=== PATIENT | female | born 1995 | race Caucasian/White ===

== ENCOUNTER 2021-01-27 09:30 | Inpatient (IN) | payer OTHER ==
[2021-01-27] MEDS ORDERED: Ibuprofen 800 MG TAB PO PRN (09:49)
[2021-01-27] MEDS ORDERED: Methylergonovine 0.2 MG/ML VIAL IM PRN (09:49)
[2021-01-27] MEDS ORDERED: Ondansetron PF 4 MG/2 ML Vial IVP PRN ×3 (09:49→21:09)
[2021-01-27] MEDS ORDERED: HYDROcodone/Acetaminophen 5/325 mg Tablet PO PRN (09:49)
[2021-01-27] MEDS ORDERED: Promethazine HCl 25 MG/ML VIAL IM PRN ×3 (09:49→21:09)
[2021-01-27] MEDS ORDERED: hydrALAZINE 20 MG/ML VIAL SLOW IVP PRN ×2 (09:49→21:09)
[2021-01-27] MEDS ORDERED: Butorphanol Tartrate 1 MG/ML VIAL SLOW IVP PRN (09:49)
[2021-01-27] MEDS ORDERED: Diphenoxylate HCl/Atropine Tablet PO PRN (09:49)
[2021-01-27] MEDS ORDERED: Acetaminophen 500 MG TAB PO PRN (09:49)
[2021-01-27] MEDS ORDERED: Carboprost 250 MCG/ML AMP IM PRN (09:49)
[2021-01-27] MEDS ORDERED: Misoprostol 200 MCG TAB PR PRN (09:49)
[2021-01-27] MEDS ORDERED: Lidocaine 1% (PF) 30 ML VIAL SC PRN (09:49)
[2021-01-27] MEDS ORDERED: NS w/ Oxytocin 30 units 500 ML IV SCH ×2 (10:00→21:09)
[2021-01-27] MEDS ORDERED: NS w/ Oxytocin 30 units 500 ML IVPB SCH (10:00)
[2021-01-27] MEDS: Lactated Ringer's 1,000 ML IV SCH ×2 (10:08→13:57)
[2021-01-27 10:12] VITALS: BMI 33.1
[2021-01-27] MEDS: NS w/ Oxytocin 30 units 500 ML IV SCH ×2 (10:53→20:27)
[2021-01-27 11:33] LABS: Hemoglobin 12.2 g/dL (12.0-15.5); Mean Corpuscular HGB CONC 34.5 g/dL (32.0-36.0); Mean Corpuscular Hemoglobin 29.9 pg (27.0-33.0); Mean Corpuscular Volume 86.8 fl (81.6-98.3); Platelet Count 148 10x3/uL (150-450); RBC Distribution Width 13.9 % (11.5-14.5); Red Blood Cell (RBC) Count 4.08 10x6/uL (3.90-5.03); White Blood Cell (WBC) Count 11.1 10x3/uL (3.5-10.5)
[2021-01-27 12:05] LABS: Hep B Surf Ag Non-Reactive S/CO (NonReactive); Syphilis Antibody Nonreactive (Nonreactive); Syphilis Antibody Index 0.08 S/CO (<1.00 Non-Reactive)
[2021-01-27] MEDS ORDERED: Fentanyl 2 mcg/Bup 0.1% Cadd 100 ML ONE (13:26)
[2021-01-27] MEDS ORDERED: Acetaminophen 325 MG TAB PO PRN (13:47)
[2021-01-27] MEDS ORDERED: diphenhydrAMINE 50 MG/ML VIAL IVP PRN (13:47)
[2021-01-27] MEDS ORDERED: Naloxone HCl 0.4 mg/ml Vial IVP PRN ×2 (13:47)
[2021-01-27] MEDS ORDERED: Hydrocerin (Eucerin) Cream 120 gm Jar TOP PRN (13:47)
[2021-01-27] MEDS ORDERED: Lactated Ringer's 500 ML IV PRN (13:47)
[2021-01-27] MEDS ORDERED: ePHEDrine Sulfate 50 MG/10 ML VIAL SLOW IVP PRN (13:47)
[2021-01-27] MEDS ORDERED: Fentanyl 2 mcg/Bupivacaine 0.1% Cassette 100 ML EPIDURAL SCH (14:00)
[2021-01-27] MEDS ORDERED: Communication Order-Pharmacy FS SCH (14:00)
[2021-01-27] MEDS ORDERED: Bisacodyl 10 MG SUPP PR PRN (21:09)
[2021-01-27] MEDS ORDERED: Milk Of Magnesia 30 ML UDCUP PO PRN (21:09)
[2021-01-27] MEDS ORDERED: Boostrix 0.5 ML (Tdap) VIAL IM ONE (21:09)
[2021-01-27] MEDS ORDERED: Lanolin Ointment 7 GM TUBE TOP PRN (21:09)
[2021-01-27] MEDS ORDERED: Benzocaine-Menthol 82.5 ML CAN TOP PRN (21:09)
[2021-01-27] MEDS ORDERED: diphenhydrAMINE 25 MG CAP PO PRN (21:09)
[2021-01-27] MEDS: Ibuprofen 800 MG TAB PO SCH (23:09)
[2021-01-27] MEDS: Docusate Calcium (SURFAK) 240 MG CAP PO SCH (23:09)
[2021-01-28 01:46] LABS: SARS-CoV-2 PCR by NAA Not Detected (NotDetected)
[2021-01-28] MEDS: Ibuprofen 800 MG TAB PO SCH ×3 (06:09→21:59)
[2021-01-28] MEDS: Ferrous Sulfate 325 MG TAB PO SCH ×2 (07:33→14:41)
[2021-01-28] MEDS: Docusate Calcium (SURFAK) 240 MG CAP PO SCH ×2 (08:14→21:59)
[2021-01-28] MEDS: Prenatal Vitamin 1 TAB PO SCH (08:14)
[2021-01-28] MEDS: HYDROcodone/Acetaminophen 5/325 mg Tablet PO PRN ×2 (09:43→20:36)
[2021-01-29] MEDS: Ibuprofen 800 MG TAB PO SCH (06:08)
[2021-01-29] MEDS: Ferrous Sulfate 325 MG TAB PO SCH (07:10)
[2021-01-29 08:04] VITALS: BP 116/69; TEMP 98.2
[2021-01-29] MEDS: Prenatal Vitamin 1 TAB PO SCH (08:17)
[2021-01-29] MEDS: Docusate Calcium (SURFAK) 240 MG CAP PO SCH (08:17)
== END 2021-01-29 10:30 | disposition home or self-care (01) | DRG 807 ==
LOC: CSHSDC/OP 09:30 → CSHLD 09:36 → CSHPP 21:20
PROVIDERS: ADMIT Family Medicine; ATTEND Family Medicine
PROC: 10E0XZZ Delivery of Products of Conception, External Approach (ICD-10-PCS; principal; 2021-01-27)
DX: O69.81X0 Labor and delivery complicated by cord around neck, without compression, not applicable or unspecified (principal); Z37.0 Single live birth; Z20.822 Contact with and (suspected) exposure to COVID-19; Z3A.38 38 weeks gestation of pregnancy
CPT/HCPCS: 36415; 51702; 85027; 86780; 86850; 86900; 86901; 87340; 99285; J2405; J2590; J7120; U0003; U0005